=== PATIENT | male | born 1950 | race Caucasian/White ===

== ENCOUNTER 2017-11-30 12:57 | Outpatient (CLI) | payer MEDICARE ==
--- NOTE | 2017-11-30 15:20 | ULT ---
RIGHT LOWER EXTREMITY VENOUS DOPPLER WITH SPECTRAL ANALYSIS AND COLOR FLOW EVALUATION: Date: 11-30-17 History: Right lower extremity pain and swelling. FINDINGS: Grayscale, color flow, doppler evaluation and spectral analysis of the bilateral lower extremity vess els is performed with 2D imaging. The right lower extremity common femoral, superficial femoral, popl iteal, posterior tibial, proximal greater saphenous and profunda femoral veins are imaged. There is decreased lumen compressibility and absence of flow seen within the right lower extremity po sterior tibial, popliteal, and mid and distal right lower extremity superficial femoral veins consist ent with occlusive DVT. There is normal flow and lumen compressibility involving the right lower extremity common femoral, pr oximal superficial femoral, and profunda femoral veins. The imaged most proximal greater saphenous ve in is patent. IMPRESSION: 1. Occlusive DVT extending from the right lower extremity posterior tibial vein to the mid right lowe r extremity superficial femoral vein. 2. Patient's primary care physician was unable to be contacted, and as a result, the patient will be transported to the Emergency Department for further care and treatment. These findings were discussed with Dr. Lynch in the Emergency Department on 11-30-17 at 1357 hours. POS: [facility]
== END 2017-11-30 12:58 | disposition home or self-care (01) ==
LOC: ULT 12:57
PROVIDERS: ATTEND General Practice
DX: M79.661 Pain in right lower leg (principal); M79.89 Other specified soft tissue disorders; I82.441 Acute embolism and thrombosis of right tibial vein; I82.411 Acute embolism and thrombosis of right femoral vein

== ENCOUNTER 2017-11-30 14:06 | Emergency (ER) | payer MEDICARE ==
[2017-11-30] MEDS ORDERED: Apixaban 5 MG TAB PO SCH (14:45)
== END 2017-11-30 14:48 | disposition home or self-care (01) ==
LOC: ERS 14:06
DX: I82.4Z1 Acute embolism and thrombosis of unspecified deep veins of right distal lower extremity (principal); F41.9 Anxiety disorder, unspecified; Z79.899 Other long term (current) drug therapy; F32.3 Major depressive disorder, single episode, severe with psychotic features
CPT/HCPCS: 99283